=== PATIENT | male | born 1990 | race Caucasian/White ===

== ENCOUNTER 2021-07-14 07:58 | Emergency (ER) | payer SELFPAY ==
[~2021-07-14] VITALS: Ht 177 cm; Wt 90.0 kg
[2021-07-14 08:00] VITALS: BP 145/94
[2021-07-14] MEDS ORDERED: SULF1TAB38 PO (08:18)
[2021-07-14] MEDS ORDERED: ACYC-112 PO (08:18)
[2021-07-14] MEDS ORDERED: ACHD5005 PO (08:18)
--- NOTE | 2021-07-14 08:18 | ED Upper Extremity ---
General Stated Complaint: LEFT MIDDLE FINGER SWOLLEN Source: patient Exam Limitations: no limitations History of Present Illness Date Seen by Provider: Jul 14, 2021 Time Seen by Provider: 08:02 Initial Comments Patient to the ER by private conveyance from home with chief complaint of pain on touch or pressure to the pulp of his third digit distal phalanx starting over the weekend, 4 days ago. He says it does not hurt too bad at rest but he says he tries to use his hand hurts. He has little area of pointing vesicle. No fevers or chills. No injury. No arthropod bites. Allergies and Home Medications Patient Home Medication List Home Medication List Reviewed: Yes Review of Systems Constitutional: No chills, No diaphoresis EENTM: No hearing loss, No ear pain Respiratory: No cough, No short of breath Cardiovascular: No chest pain, No palpitations Gastrointestinal: No abdominal pain, No nausea, No vomiting Genitourinary: No decreased output, No discharge Musculoskeletal: No back pain, No joint pain All Other Systems Reviewed Negative Unless Noted: Yes Past Ksonphp-[id number]-Hhebnd Hx Patient Social History Tobacco Use?: No Use of E-Cig and/or Vaping dev: No Physical Exam Vital Signs Capillary Refill : Height, Weight, BMI Height: '" Weight: lbs. oz. kg; BMI Method: General Appearance: WD/WN, no apparent distress HEENT: PERRL/EOMI, pharynx normal Neck: full range of motion, normal inspection Cardiovascular: normal peripheral pulses, regular rate, rhythm Respiratory: no respiratory distress, no accessory muscle use Wrist: Yes normal inspection, Yes non-tender, Yes no evidence of injury, Yes normal ROM Hand: no evidence of injury, normal ROM, Right, soft tissue tenderness (Distal phalanx of the third digit on the right hand has pointing area of white vesicle with some swelling soft tissue tenderness but no significant erythema warmth.), swelling Progress/Results/Core Measures Progress Progress Note : Time: 08:15 Progress Note Most likely herpetic augustus. We will provide him with a prescription for some pain medication as well as antivirals. We will provide him for a backup prescription of Bactrim in case he becomes secondarily infected. Return precautions given. Departure Impression Primary Impression: Herpetic augustus Disposition: 01 HOME, SELF-CARE Condition: Stable Departure-Patient Inst. Decision time for Depature: 08:16 Patient Instructions: Herpetic Augustus (DC) Add. Discharge Instructions: Keep the skin clean dry and dressed if it begins to drain. Topical creams with capsaicin oil are very helpful to reduce pain. I recommend warmth over cold. Tylenol 1000 mg every 8 hours necessary for pain. Ibuprofen 800 mg every 8 hours necessary for pain. Acyclovir 800 mg 5 times a day for the next week. Hydrocodone 1 tablet every 6 hours as necessary for severe breakthrough pain keeping you from a functional. If it breaks open then the fluid is infected so you should clean your hand and keep a dry clean gauze dressing in place. If it becomes secondarily infected with bacteria as evidenced by increasing redness heat swelling going up your hand or fever then you should start the Bactrim twice a day. Typically symptoms can last up to a couple weeks. Should be shorter with acyclovir especially if started in the first 1 to 2 days. Scripts Sulfamethoxazole/Trimethoprim (Bactrim Ds Tablet) 1 Each Tablet 1 EACH PO BID for 7 Days, #14 TAB 0 Refills Prov: DEANNE BURGOS 07/14/21 Acyclovir (Acyclovir) 800 Mg Tablet 800 MG PO 5XD for 7 Days, #35 TAB 0 Refills Prov: DEANNE BURGOS 07/14/21 Hydrocodone/Acetaminophen (Hydrocodone-Acetamin 5-325 mg) 1 Each Tablet 1 TAB PO Q6H PRN for PAIN-MODERATE (5-7), #8 TAB 0 Refills Prov: DEANNE BURGOS 07/14/21 DEANNE BURGOS Jul 14, 2021 08:18
== END 2021-07-14 08:24 | disposition home or self-care (01) ==
LOC: ER 08:04
DX: B00.89 Other herpesviral infection (principal)
CPT/HCPCS: 99281